=== PATIENT | female | born 1995 | race Caucasian/White ===

== ENCOUNTER 2023-01-05 23:05 | Inpatient (IN) | payer BC ==
[~2023-01-05 23:05] MED LIST: Bupivacaine 0.25% HCL 30 ML VIAL ONE
[2023-01-05] MEDS ORDERED: Lidocaine 1% (PF) 30 ML VIAL SC PRN (23:40)
[2023-01-05] MEDS ORDERED: Ondansetron PF 4 MG/2 ML Vial IVP PRN (23:40)
[2023-01-05] MEDS ORDERED: hydrALAZINE 20 MG/ML VIAL SLOW IVP PRN ×2 (23:40)
[2023-01-05] MEDS ORDERED: Acetaminophen 500 MG TAB PO PRN (23:40)
[2023-01-05] MEDS ORDERED: Promethazine HCl 25 MG/ML VIAL IM PRN (23:40)
[2023-01-05] MEDS ORDERED: Carboprost 250 MCG/ML AMP IM PRN (23:40)
[2023-01-05] MEDS ORDERED: Misoprostol 200 MCG TAB PR PRN (23:40)
[2023-01-05] MEDS ORDERED: Ibuprofen 800 MG TAB PO PRN (23:40)
[2023-01-05] MEDS ORDERED: Methylergonovine 0.2 MG/ML VIAL IM PRN (23:40)
[2023-01-05 23:53] VITALS: BMI 25.7
[2023-01-05] MEDS ORDERED: Lactated Ringer's 1,000 ML IV SCH (23:59)
[2023-01-05] MEDS ORDERED: NS w/ Oxytocin 30 units 500 ML IV SCH (23:59)
[2023-01-06 00:04] LABS: Hemoglobin 13.5 g/dL (12.0-15.5); Mean Corpuscular HGB CONC 33.5 g/dL (32.0-36.0); Mean Corpuscular Hemoglobin 29.7 pg (27.0-33.0); Mean Corpuscular Volume 88.8 fl (81.6-98.3); Mean Platelet Volume 12.5 fl (7.4-10.4); Platelet Count 155 10x3/uL (150-450); RBC Distribution Width 13.3 % (11.5-14.5); Red Blood Cell (RBC) Count 4.54 10x6/uL (3.90-5.03); White Blood Cell (WBC) Count 10.1 10x3/uL (3.5-10.5)
[2023-01-06] MEDS ORDERED: Fentanyl 2 mcg/Bup 0.1% Cadd 100 ML ONE (00:08)
[2023-01-06 00:30] LABS: Fetal Membranes Rupture No Membranes Rupture (No Rupture)
[2023-01-06 00:42] LABS: Syphilis Antibody Nonreactive (Nonreactive); Syphilis Antibody Index 0.02 S/CO (<1.00 Non-Reactive)
[2023-01-06 00:44] LABS: HBSAg Index 0.16 S/CO (0-0.99); Hep B Surf Ag - L&D Non-Reactive S/CO (NonReactive)
[2023-01-06] MEDS ORDERED: Promethazine HCl 25 MG/ML VIAL IM PRN (00:46)
[2023-01-06] MEDS ORDERED: diphenhydrAMINE 50 MG/ML VIAL IVP PRN (00:46)
[2023-01-06] MEDS ORDERED: Moisturizing Cream (Eucerin) 113 GM JAR TOP PRN (00:46)
[2023-01-06] MEDS ORDERED: ePHEDrine Sulfate 50 MG/10 ML VIAL SLOW IVP PRN (00:46)
[2023-01-06] MEDS ORDERED: Ondansetron PF 4 MG/2 ML Vial IVP PRN (00:46)
[2023-01-06] MEDS ORDERED: Naloxone HCl 0.4 mg/ml Vial IVP PRN ×2 (00:46)
[2023-01-06] MEDS ORDERED: Acetaminophen 325 MG TAB PO PRN (00:46)
[2023-01-06] MEDS ORDERED: Lactated Ringer's 500 ML IV PRN (00:46)
[2023-01-06] MEDS ORDERED: Fentanyl 2 mcg/Bupivacaine 0.1% Cassette 100 ML EPIDURAL SCH (01:00)
[2023-01-06] MEDS ORDERED: Communication Order-Pharmacy FS SCH (01:00)
[2023-01-06] MEDS ORDERED: hydrALAZINE 20 MG/ML VIAL SLOW IVP PRN (05:16)
[2023-01-06] MEDS ORDERED: Boostrix 0.5 ML (Tdap) VIAL (>/=7 yrs of age) IM ONE (05:16)
[2023-01-06] MEDS ORDERED: Bisacodyl 10 MG SUPP PR PRN (05:16)
[2023-01-06] MEDS ORDERED: Milk Of Magnesia 30 ML UDCUP PO PRN (05:16)
[2023-01-06] MEDS ORDERED: Benzocaine-Menthol 82.5 ML CAN TOP PRN (10:49)
[2023-01-06] MEDS: Ibuprofen 800 MG TAB PO SCH ×3 (13:20→21:09)
[2023-01-06] MEDS: Docusate 100 MG CAP PO SCH ×2 (13:25→19:12)
[2023-01-06] MEDS: Ferrous Sulfate 325 MG TAB PO SCH ×2 (13:25→19:05)
[2023-01-07 04:07] LABS: #Eosinphils 0.1 10x3/uL (0.0-0.5); #Monocytes 0.7 10x3/uL (0.0-1.1); #Neutrophils 8.1 10x3/uL (1.5-8.4); %Basophils 0.3 % (0.0-2.0); %Eosinophils 0.4 % (0.0-6.0); %Lymphocytes 21.1 % (18.0-47.0); %Monocytes 6.4 % (0.0-10.0); %Neutrophils 71.1 % (40.0-75.0); Hemoglobin 12.6 g/dL (12.0-15.5); Mean Corpuscular HGB CONC 33.6 g/dL (32.0-36.0); Mean Corpuscular Hemoglobin 30.4 pg (27.0-33.0); Mean Corpuscular Volume 90.6 fl (81.6-98.3); Mean Platelet Volume 12.2 fl (7.4-10.4); Platelet Count 136 10x3/uL (150-450); RBC Distribution Width 13.6 % (11.5-14.5); Red Blood Cell (RBC) Count 4.14 10x6/uL (3.90-5.03); White Blood Cell (WBC) Count 11.3 10x3/uL (3.5-10.5)
[2023-01-07] MEDS: Ibuprofen 800 MG TAB PO SCH (05:07)
[2023-01-07] MEDS: Ferrous Sulfate 325 MG TAB PO SCH (07:39)
[2023-01-07] MEDS: Docusate 100 MG CAP PO SCH (08:01)
[2023-01-07 08:05] VITALS: BP 122/71; TEMP 98.2
== END 2023-01-07 10:30 | disposition home or self-care (01) | DRG 807 ==
LOC: CSHLD/OP 23:05 → CSHLD 23:40 → CSHPP 01-06 09:28
PROVIDERS: ADMIT Obstetrics & Gynecology; ATTEND Obstetrics & Gynecology
PROC: 10E0XZZ Delivery of Products of Conception, External Approach (ICD-10-PCS; principal; 2023-01-06)
PROC: 0UQMXZZ Repair Vulva, External Approach (ICD-10-PCS; 2023-01-06)
PROC: 0HQ9XZZ Repair Perineum Skin, External Approach (ICD-10-PCS; 2023-01-06)
PROC: 10907ZC Drainage of Amniotic Fluid, Therapeutic from Products of Conception, Via Natural or Artificial Opening (ICD-10-PCS; 2023-01-06)
DX: O99.354 Diseases of the nervous system complicating childbirth (principal); Z37.0 Single live birth; Z3A.40 40 weeks gestation of pregnancy; G43.909 Migraine, unspecified, not intractable, without status migrainosus; O71.82 Other specified trauma to perineum and vulva; O70.0 First degree perineal laceration during delivery; Z79.899 Other long term (current) drug therapy
CPT/HCPCS: 36415; 51702; 84112; 85025; 85027; 86780; 86850; 86900; 86901; 87340; 99285; S0020